=== PATIENT | female | born 1975 | race Caucasian/White ===

== ENCOUNTER 2020-01-31 09:44 | Outpatient (CLI) | payer BC ==
--- NOTE | 2020-01-31 11:01 | MRI ---
MRI of thebrain without contrast: 01/31/2020 COMPARISON:None available HISTORY:Systemic sclerosis, numbness and tingling with bilateral upper extremity radiculopathy TECHNIQUE: Multiplanar multisequence MR imaging of thebrain without contrast Findings:The diffusion weighted imaging demonstrates no evidence for acute infarction. The axial grad ient echo imaging demonstrates no evidence for intracranial hemorrhage. Axial T2 and FLAIR imaging demonstrates no significant white matter signal abnormality. The imaged pa ranasal sinuses and mastoid air cells appear well-aerated. Arterial flow voids at the axial level of the skull base appear grossly unremarkable on the T2-weighted imaging. Regional bone marrow signal intensity unremarkable. IMPRESSION:Grossly unremarkable noncontrast enhanced brain MRI.
--- NOTE | 2020-01-31 11:05 | MRI ---
MRI of thecervical spine: 01/31/2020 COMPARISON:None available HISTORY:Systemic sclerosis, numbness and tingling of the upper extremities, radiculopathy TECHNIQUE: Multiplanar multisequence MR imaging of thecervical spine without contrast Findings:Sagittal STIR imaging demonstrates no focal area of osseous marrow edema. Cervical vertebral body height and alignment unremarkable. No prevertebral soft tissue abnormality. Benign hemangioma noted at C7. Mild degenerative change of the atlantoaxial interspace. C2-3: Unremarkable C3-4: Unremarkable. C4-5 mild disc space narrowing and mild anterior osteophyte formation. Mild bilateral facet hypertrop hy, left greater than right. No significant central canal or neural foraminal stenosis. C5-6: Mild disc bulge with no central canal stenosis. Tiny left paracentral disc protrusion. Mild ron ateral facet hypertrophy. No significant neural foraminal stenosis. C6-7: Disc desiccation and mild disc bulge. No significant central canal or neural foraminal stenosis . C7-T1: Unremarkable. No abnormal signal intensity identified within the cervical cord. IMPRESSION:Mild degenerative changes with no significant central canal or neural foraminal stenosis.
== END 2020-01-31 09:45 | disposition home or self-care (01) ==
LOC: SCSMRI 09:44
PROVIDERS: ATTEND Orthopaedic Surgery Hand Surgery
DX: M47.22 Other spondylosis with radiculopathy, cervical region (principal); M34.9 Systemic sclerosis, unspecified
CPT/HCPCS: 70551; 72141